=== PATIENT | female | born 1990 | race African-American/Black ===

== ENCOUNTER 2018-04-30 08:37 | Day surgery (SDC) | payer OTHER ==
[2018-04-30] MEDS ORDERED: MIDAZOLAM 1 MG/ML 2 ML INJ (10:23)
[2018-04-30] MEDS ORDERED: METOCLOPRAMIDE 10 MG INJ (10:23)
[2018-04-30] MEDS ORDERED: PROPOFOL 20 ML (10:27)
[2018-04-30] MEDS ORDERED: ONDANSETRON 4 MG INJ (10:29)
[2018-04-30] MEDS: LIDOCAINE 1%/EPI 30 ML INJ (10:34)
[2018-04-30] MEDS ORDERED: KETOROLAC 30 MG INJ (10:41)
[2018-04-30] MEDS ORDERED: MEPERIDINE 25 MG INJ IV (11:00)
[2018-04-30] MEDS ORDERED: DIPHENHYDRAMINE 50 MG INJ IV (11:00)
[2018-04-30] MEDS ORDERED: ONDANSETRON 4 MG INJ IV (11:00)
[2018-04-30] MEDS ORDERED: OXYCODONE/ACETAMINOPHEN (5/325) TAB PO ×2 (11:00)
[2018-04-30] MEDS ORDERED: HYDROmorphONE 1 MG/5 ML IV SYRINGE IV ×3 (11:00)
== END 2018-04-30 13:00 | disposition home or self-care (01) ==
LOC: SDS 08:37
DX: Q18.1 Preauricular sinus and cyst (principal); L72.0 Epidermal cyst
CPT/HCPCS: 11443; 84703; 88304